=== PATIENT | female | born 1995 | race African-American/Black ===

== ENCOUNTER 2017-10-12 10:46 | Inpatient (IN) ==
--- NOTE | 2017-10-12 11:08 | ED ---
History of Present Illness Primary Care Physician: No Primary Care Physician Chief Complaint: Leakage of fluid History of Present Illness: 22-year-old at 40/2 presenting to clinic with complaints of leakage of fluid. Patient states that she had a gush of clear fluid at roughly 730 this morning. She denies any vaginal bleeding, decreased movement or contractions. She also denies any fever, chills, dysuria chest pain or shortness of breath. Patient states that this has been uncomplicated. Has been followed by Nohemi Roy for care. Of note, patient was seen for a consult on 10/04. Had planned for repeat C- section at 41 weeks if she had not delivered vaginally by that time. OB history: One prior SBA, one at 28 weeks "to prevent brain injury" [facility] - History History Provided By: Patient (history of csection due to labor at 27-28 weeks) - Medical / Surgical Hx Neg / Unobtainable Medical Problems Denied: Yes - Surgical History Surgical History: Surgical History (Last Updated 10/04/17 @ 16:05 by Jonny Mcnair MD) H/O dilation and curettage History of - Tobacco History Smoking Status: Never smoker - Alcohol History How Often Do You Have a Drink Containing Alcohol: Never (while ) - Substance Use History Substance History: No History of Abuse Medications and Allergies Allergies Allergy/AdvReac Type Severity Reaction Status Date / Time No Known Allergies Allergy Unverified 10/12/17 11:29 Home Medications Medication Instructions Recorded Confirmed Type + DHA PO DAILY 10/12/17 History Exam Narrative: GENERAL: Well-nourished, well-developed patient. SKIN: Warm and dry. HEAD: Normocephalic and atraumatic. EYES: No scleral icterus. No injection or drainage. ENT: No nasal drainage noted. Mucous membranes pink. Airway patent. NECK: Supple, trachea midline. No JVD. CARDIOVASCULAR: Regular rate and rhythm without murmurs, gallops, or rubs. RESPIRATORY: Breath sounds equal bilaterally. No accessory muscle use. ABDOMEN/GI: Abdomen soft, non-tender, bowel sounds present, no rebound, no guarding Gravid to 40 weeks size GENITOURINARY: External Genitalia: intact and normal in appearance Cervix: Posterior Dilatation: 2 Effacement: 70 Station: -2 Presentation: Vertex Membranes: Ruptured Uterine Contractions: Absent FHT's: Category: 1 Baseline: 135 Reactive: y Variability: Moderate Decels: Absent EXTREMITIES: No cyanosis or edema. BACK: Nontender without obvious deformity. No CVA tenderness. NEUROLOGICAL: Awake and alert. Motor and sensory grossly within normal limits. Five out of 5 muscle strength in all muscle groups. Normal speech. Assessment and Plan - Diagnosis (1) Rupture of membranes with clear amniotic fluid Status: Acute - Plan 22-year-old at 40/2 presenting to the OB ED with complaints of gush of clear fluid. Amnisure is positive. Will admit to labor and delivery for anticipated . -Category 1 tracing, no contractions on the monitor -GBS positive, will treat with penicillin -Pitocin for labor augmentation -Otherwise routine labor and delivery orders Discharge Plan - Discharge Disposition Patient Disposition: 30 Still Patient - Discharge Condition Condition: Stable - Physicians Team ED Provider: Yuan Eckert Primary Care Provider: Primary Care Courtney Dela Cruz - Rxs /Orders / Referrals /Forms Prescriptions: Continue + DHA tablet PO DAILY - Discharge Instructions Print Language: [place]
[2017-10-12] MEDS ORDERED: Naloxone Inj 0.4 MG/ML Vial IV.PUSH PRN ×2 (11:29→21:52)
[2017-10-12] MEDS ORDERED: Sod Chloride 0.9% Inj 1,000 ML IV.CONT PRN (11:29)
[2017-10-12] MEDS ORDERED: Oxytocin 30 Units/500ml Premix 30 UNITS/500 ML BAG IV.SIG ONE (11:29)
[2017-10-12] MEDS ORDERED: Sodium Chlor 0.9% Inj 500 ML IV.SIG PRN (11:29)
[2017-10-12] MEDS ORDERED: Penicillin G Potassium Inj 5,000,000 UNIT in Sodium Chloride 0.9% Inj 100 ML IV.SIG ONE (11:29)
[2017-10-12] MEDS ORDERED: Oxytocin 30 Units/500ml Premix 30 UNITS/500 ML BAG IV.SIG PRN (11:29)
[2017-10-12] MEDS ORDERED: fentaNYL Citrate Inj 100 MCG/2 ML Ampul IV.PUSH PRN ×2 (11:29)
[2017-10-12] MEDS ORDERED: Citric Acid/Sodium Citrate Liq 30 ML UDC PO SCH (11:30)
[2017-10-12 12:10] LABS: Bilirubin,Urine Negative (Negative); Clarity,Urine Clear (Clear); Color,Urine Straw (Yellw/Straw); Glucose,Urine (UA) Negative (Negative); Leukocyte Esterase,Urine Negative (Negative); Nitrite,Urine Negative (Negative); Specific Gravity,Urine 1.005 (1.002-1.035); Squamous Epithelial Cell,Urine 3 /hpf (0-5)
[2017-10-12 12:16] LABS: Amphetamine Urine With Conf Neg (Neg); Benzodiazepine Urine With Conf Neg (Neg)
[2017-10-12 12:49] LABS: Baso % (Auto) 0.2 % (0.0-2.0); Eos % (Auto) 0.6 % (0.0-4.0); Hematocrit 38.8 % (35.0-46.0); Hemoglobin 12.7 gm/dL (11.6-15.3); Lymph # (Auto) 1.3 th/mm3 (1.0-4.8); Lymph % (Auto) 23.4 % (9.0-44.0); Mean Corpuscular HGB Conc 32.8 % (32.0-36.0); Mean Corpuscular Hemoglobin 27.4 pg (27.0-34.0); Mean Corpuscular Volume 83.6 fL (80.0-100.0); Mean Platelet Volume 9.4 fL (7.0-11.0); Mono # (Auto) 0.3 th/mm3 (0.0-0.9); Mono % (Auto) 6.1 % (0.0-8.0); Neut # (Auto) 3.9 th/mm3 (1.8-7.7); Neut % (Auto) 69.7 % (16.0-70.0); Platelet Count 192 th/mm3 (150-450); Red Blood Count 4.64 mil/mm3 (4.00-5.30); Red Cell Distribution Width 15.6 % (11.6-17.2); White Blood Count 5.7 th/mm3 (4.0-11.0)
[2017-10-12] MEDS ORDERED: Diphtheria/Tetanus/Pertussis Vaccine Inj 0.5 ML Syringe IM ONE (16:00)
[2017-10-12] MEDS ORDERED: Measles/Mumps/Rubella Vaccine Inj 0.5 ML Vial SQ ONE (16:00)
[2017-10-12] MEDS: Penicillin G Potassium Inj 2,500,000 UNIT in Sodium Chlor 0.9% Inj 100 ML IV.SIG SCH ×2 (16:54→21:00)
[2017-10-12] MEDS ORDERED: Lidocaine PF 1% Inj 10 ML Amp ONE (19:44)
[2017-10-12] MEDS ORDERED: Bisacodyl 10 MG Supp RECTAL PRN (21:52)
[2017-10-12] MEDS ORDERED: Acetaminophen 325 MG Tablet PO PRN (21:52)
[2017-10-12] MEDS ORDERED: Zolpidem Tartrate 5 MG Tablet PO PRN (21:52)
[2017-10-12] MEDS ORDERED: Witch Hazel 50%/Glyderin 12.5% 40 Pad Jar RECTAL PRN (21:52)
[2017-10-12] MEDS ORDERED: Benzocaine 20% Top Spray 60 ML Can TOPICAL PRN (21:52)
--- NOTE | 2017-10-12 21:52 | P.OBDELI ---
Weeks Gestation: 40 Anesthesia: None, Lidocaine local to perineum Episiotomy: none Vaginal Delivery: Normal Presentation: Occiput anterior Nuchal Cord: x1 Delayed Cord Clamping (45 sec): No (avulsed cord at the umbilicus due to mothers rapid movements) Placenta: Spontaneous delivery Laceration: 2 deg Repair: Chromic running Estimated blood loss (mL): 200 Infant: Male Infant Male A Infant Delivery Date: 10/12/17 Infant Delivery Time: 21:10 Weight: 3230 kg score (1 min): 8 score (5 min): 8 Additional Information: supervised by Dr. Eckert
[2017-10-12] MEDS ORDERED: Oxytocin 30 Units/500ml Premix 30 UNITS/500 ML BAG IV.CONT SCH (22:00)
[2017-10-13] MEDS: Ibuprofen 400 MG Tablet PO PRN ×2 (02:07→21:22)
--- NOTE | 2017-10-13 08:15 | P.PNOB ---
Subjective Post day: 1 Interval history: Patient is a 22-year-old delivered at 40 weeks and 2 days. Patient is day 1 after . Patient's pain is well-controlled. Patient reports eating and drinking without any nausea or vomiting. Patient reports minimal bleeding. Patient has passed gas but no bowel movements. Patient is walking without lower extremity pain or shortness of breath. Patient reports desire for contraception and breast-feeding. Objective Vital Signs/I&O: Vital Signs 10/12/17 11:09 10/12/17 11:10 10/12/17 13:38 Temperature 98.2 F 98.2 F Pulse Rate 118 H 87 Respiratory Rate 18 Blood Pressure 120/66 116/64 10/12/17 13:44 10/12/17 14:00 10/12/17 14:32 Temperature 98.2 F Pulse Rate 89 87 Respiratory Rate 16 18 Blood Pressure 126/67 119/63 10/12/17 14:58 10/12/17 14:59 10/12/17 15:12 Temperature Pulse Rate 88 91 H Respiratory Rate 18 Blood Pressure 121/76 119/74 10/12/17 15:50 10/12/17 16:19 10/12/17 16:50 Temperature 98.3 F Pulse Rate 83 80 Respiratory Rate 18 18 Blood Pressure 123/68 134/71 10/12/17 16:51 10/12/17 17:38 10/12/17 17:39 Temperature 98.2 F Pulse Rate 81 81 Respiratory Rate 18 Blood Pressure 121/75 105/75 10/12/17 18:30 10/12/17 18:34 10/12/17 20:00 Temperature 98.2 F Pulse Rate 72 85 Respiratory Rate 18 18 Blood Pressure 115/72 111/83 10/12/17 22:00 10/12/17 22:10 10/12/17 22:30 Temperature 98.6 F 98.9 F Pulse Rate 70 68 95 H Respiratory Rate 18 18 18 Blood Pressure 128/68 124/77 128/60 10/12/17 22:45 10/12/17 23:30 Temperature 98.9 F Pulse Rate 76 70 Respiratory Rate 18 20 Blood Pressure 125/69 121/66 Intake & Output 10/12/17 10/13/17 10/13/17 18:59 06:59 18:59 Intake Total 100 / 100 Balance 100 / 100 Weight 91 kg Intake: IV 100 / 100 Pfizerpen-G Inj 2,500,000 UNIT 100 / 100 In NS Inj 100 ML @ 200 mls/hr IV.SIG Q4H [facility] Rx#:[id number] Other: Weight On Admission 91 kg Result Diagrams: 10/12/17 12:00 Objective Remarks: GENERAL: Well-nourished, well-developed patient. CARDIOVASCULAR: Regular rate and rhythm without murmurs, gallops, or rubs. RESPIRATORY: Breath sounds equal bilaterally. No accessory muscle use. ABDOMEN/GI: Abdomen soft, non-tender. Fundus: Firm, non-tender at umbilicus. GENITOURINARY: Light to moderate bleeding. EXTREMITIES: No cyanosis or edema, non-tender, without signs of DVT. Medications and IVs: Active Medications Acetaminophen (Tylenol) 650 mg PO Q4H PRN PRN Reason: PAIN SCALE 1 TO 2 Al Hydroxide/Mg Hydroxide (Milk Of Magnesia Liq) 30 ml PO Q12H PRN PRN Reason: Mild Constipation Benzocaine (Americaine 20% [place]) 1 spray TOPICAL Q4H PRN PRN Reason: For Perineum Discomfort Bisacodyl (Dulcolax Supp) 10 mg RECTAL DAILY PRN PRN Reason: SEVERE CONSITIPATION Citric Acid/Sodium Citrate (Sodium Citrate/Citric Acid Liq) 30 ml PO [employer]NAL [employer] SPECIALIST [facility] Stop: 10/16/17 11:29 Fentanyl Citrate (Fentanyl Inj) 50 mcg IV.PUSH Q1H PRN PRN Reason: Pain Scale 3 - 5 Fentanyl Citrate (Fentanyl Inj) 100 mcg IV.PUSH Q1H PRN PRN Reason: PAIN SCALE 6 TO 10 Last Admin: 10/12/17 18:29 Dose: 100 mcg Lactated Ringer's (Lr 1000 Ml Inj) 1,000 mls @ 125 mls/hr IV.CONT .Q8H [facility] Lactated Ringer's (Lr 1000 Ml Inj) 1,000 mls @ 3,000 mls/hr IV.SIG UNSCH PRN PRN Reason: compromise or epidural Sodium Chloride (Ns Inj) 500 mls @ 1,000 mls/hr IV.SIG UNSCH PRN PRN Reason: SEE LABEL COMMENTS Sodium Chloride (Ns Inj) 1,000 mls @ 100 mls/hr IV.CONT .Q10H PRN PRN Reason: SEE LABEL COMMENTS Oxytocin (Pitocin 30 Units/Ns 500 Ml Premix) 30 units in 500 mls @ 1 mls/hr IV.SIG TITRATE PRN; Protocol PRN Reason: For induction of labor Last Admin: 10/12/17 12:56 Dose: 1 milliunit/min, 1 mls/hr Penicillin G Potassium 2,500, (000 unit/ Sodium Chloride) 100 mls @ 200 mls/hr IV.SIG Q4H MATTY Last Admin: 10/12/17 21:00 Dose: 200 mls/hr Ibuprofen (Motrin) 800 mg PO Q8H PRN PRN Reason: For cramping Last Admin: 10/13/17 02:07 Dose: 800 mg Lactulose (Lactulose Liq) 30 ml PO DAILY PRN PRN Reason: SEVERE CONSITIPATION Lidocaine HCl (Xylocaine 1% Inj) 0.1 ml I-DERMAL PRN PRN PRN Reason: For IV start Stop: 10/15/17 11:28 Lidocaine HCl (Xylocaine 1% Inj) 10 ml INFILTRATN PRN PRN PRN Reason: For episiotomy repair Stop: 10/14/17 11:28 Last Admin: 10/12/17 21:30 Dose: 10 ml Mineral Oil (Muri-Lube Oil) 10 ml TOPICAL PRN PRN PRN Reason: PRN perineal massage Naloxone HCl (Narcan Inj) 0.1 mg IV.PUSH Q2M PRN PRN Reason: for opiate reversal Naloxone HCl (Narcan Inj) 0.1 mg IV.PUSH Q2M PRN PRN Reason: for opiate reversal Ondansetron HCl (Zofran Inj) 4 mg IV.PUSH Q6H PRN PRN Reason: NAUSEA OR VOMITING Ondansetron HCl (Zofran Odt) 4 mg PO Q6H PRN PRN Reason: NAUSEA OR VOMITING Oxycodone/Acetaminophen (Percocet 5/325 Mg) 1 tab PO Q4H PRN PRN Reason: PAIN SCALE 3 TO 5 Oxycodone/Acetaminophen (Percocet 5/325 Mg) 2 tab PO Q4H PRN PRN Reason: PAIN SCALE 6 TO 10 Senna/Docusate Sodium (Uzma-Colace) 1 tab PO BID MATTY Sennosides (Senokot) 17.2 mg PO Q12H PRN PRN Reason: Moderate Constipation Sodium Chloride (Ns Flush) 2 ml IV.FLUSH BID MATTY Sodium Chloride (Ns Flush) 2 ml IV.FLUSH PRN PRN PRN Reason: FLUSH AFTER USING IV ACCESS Witch Kat/Glycerin (Tucks Pads) 1 applicatio RECTAL QID PRN PRN Reason: HEMORRHOIDS Zolpidem Tartrate (Ambien) 5 mg PO HS PRN PRN Reason: SLEEP Assessment and Plan - Diagnosis (1) Vaginal delivery Code(s): O80 - Encounter for full-term uncomplicated delivery Status: Acute Plan: Patient is a 22-year-old delivered at 40 weeks and 2 days. Patient is day 1 after . Patient was counseled to do 6 weeks of pelvic rest. Patient was counseled to follow up in 6 weeks. --AF VSS --Continue routine care --Motrin and Tylenol when necessary for pain --Encourage OOB --Pelvic rest for 6 weeks will need follow-up appointment at that time. --Contraception: unsure --Anticipate discharge tomorrow
[2017-10-13] MEDS: Senna/Docusate Sodium 8.6/50 MG Tablet PO SCH ×2 (09:14→21:25)
--- NOTE | 2017-10-14 07:07 | P.PNOB ---
Subjective Post day: 2 Interval history: Patient is a 22-year-old delivered at 40 weeks and 2 days. Patient is day 2 after . Patient's pain is well-controlled. Patient reports eating and drinking without any nausea or vomiting. Patient reports minimal bleeding. Patient has passed gas but no bowel movements. Patient is walking without lower extremity pain or shortness of breath. Patient reports desire for contraception and breast-feeding. Objective Vital Signs/I&O: Vital Signs 10/13/17 08:05 10/13/17 20:05 Temperature 98.1 F 98.3 F Pulse Rate 91 H 81 Respiratory Rate 18 20 Blood Pressure 118/72 124/68 Intake & Output 10/13/17 10/14/17 10/14/17 18:59 06:59 18:59 Weight 2.825 kg Result Diagrams: 10/12/17 12:00 Objective Remarks: GENERAL: Well-nourished, well-developed patient. CARDIOVASCULAR: Regular rate and rhythm without murmurs, gallops, or rubs. RESPIRATORY: Breath sounds equal bilaterally. No accessory muscle use. ABDOMEN/GI: Abdomen soft, non-tender. Fundus: Firm, non-tender at umbilicus. GENITOURINARY: Light to moderate bleeding. EXTREMITIES: No cyanosis or edema, non-tender, without signs of DVT. Medications and IVs: Active Medications Acetaminophen (Tylenol) 650 mg PO Q4H PRN PRN Reason: PAIN SCALE 1 TO 2 Al Hydroxide/Mg Hydroxide (Milk Of Magnesia Liq) 30 ml PO Q12H PRN PRN Reason: Mild Constipation Benzocaine (Americaine 20% Top [place]) 1 spray TOPICAL Q4H PRN PRN Reason: For Perineum Discomfort Bisacodyl (Dulcolax Supp) 10 mg RECTAL DAILY PRN PRN Reason: SEVERE CONSITIPATION Citric Acid/Sodium Citrate (Sodium Citrate/Citric Acid Liq) 30 ml PO VIDEO PRODUCTION COORDINATOR [facility] Stop: 10/16/17 11:29 Fentanyl Citrate (Fentanyl Inj) 50 mcg IV.PUSH Q1H PRN PRN Reason: Pain Scale 3 - 5 Fentanyl Citrate (Fentanyl Inj) 100 mcg IV.PUSH Q1H PRN PRN Reason: PAIN SCALE 6 TO 10 Last Admin: 10/12/17 18:29 Dose: 100 mcg Lactated Ringer's (Lr 1000 Ml Inj) 1,000 mls @ 125 mls/hr IV.CONT .Q8H MATTY Lactated Ringer's (Lr 1000 Ml Inj) 1,000 mls @ 3,000 mls/hr IV.SIG UNSCH PRN PRN Reason: compromise or epidural Sodium Chloride (Ns Inj) 500 mls @ 1,000 mls/hr IV.SIG UNSCH PRN PRN Reason: SEE LABEL COMMENTS Sodium Chloride (Ns Inj) 1,000 mls @ 100 mls/hr IV.CONT .Q10H PRN PRN Reason: SEE LABEL COMMENTS Oxytocin (Pitocin 30 Units/Ns 500 Ml Premix) 30 units in 500 mls @ 1 mls/hr IV.SIG TITRATE PRN; Protocol PRN Reason: For induction of labor Last Admin: 10/12/17 12:56 Dose: 1 milliunit/min, 1 mls/hr Penicillin G Potassium 2,500, (000 unit/ Sodium Chloride) 100 mls @ 200 mls/hr IV.SIG Q4H MATTY Last Admin: 10/12/17 21:00 Dose: 200 mls/hr Ibuprofen (Motrin) 800 mg PO Q8H PRN PRN Reason: For cramping Last Admin: 10/13/17 21:22 Dose: 800 mg Lactulose (Lactulose Liq) 30 ml PO DAILY PRN PRN Reason: SEVERE CONSITIPATION Lidocaine HCl (Xylocaine 1% Inj) 0.1 ml I-DERMAL PRN PRN PRN Reason: For IV start Stop: 10/15/17 11:28 Lidocaine HCl (Xylocaine 1% Inj) 10 ml INFILTRATN PRN PRN PRN Reason: For episiotomy repair Stop: 10/14/17 11:28 Last Admin: 10/12/17 21:30 Dose: 10 ml Mineral Oil (Muri-Lube Oil) 10 ml TOPICAL PRN PRN PRN Reason: PRN perineal massage Naloxone HCl (Narcan Inj) 0.1 mg IV.PUSH Q2M PRN PRN Reason: for opiate reversal Naloxone HCl (Narcan Inj) 0.1 mg IV.PUSH Q2M PRN PRN Reason: for opiate reversal Ondansetron HCl (Zofran Inj) 4 mg IV.PUSH Q6H PRN PRN Reason: NAUSEA OR VOMITING Ondansetron HCl (Zofran Odt) 4 mg PO Q6H PRN PRN Reason: NAUSEA OR VOMITING Oxycodone/Acetaminophen (Percocet 5/325 Mg) 1 tab PO Q4H PRN PRN Reason: PAIN SCALE 3 TO 5 Oxycodone/Acetaminophen (Percocet 5/325 Mg) 2 tab PO Q4H PRN PRN Reason: PAIN SCALE 6 TO 10 Senna/Docusate Sodium (Uzma-Colace) 1 tab PO BID MATTY Last Admin: 10/13/17 21:25 Dose: 1 tab Sennosides (Senokot) 17.2 mg PO Q12H PRN PRN Reason: Moderate Constipation Sodium Chloride (Ns Flush) 2 ml IV.FLUSH BID MATTY Sodium Chloride (Ns Flush) 2 ml IV.FLUSH PRN PRN PRN Reason: FLUSH AFTER USING IV ACCESS Witch Kat/Glycerin (Tucks Pads) 1 applicatio RECTAL QID PRN PRN Reason: HEMORRHOIDS Zolpidem Tartrate (Ambien) 5 mg PO HS PRN PRN Reason: SLEEP Assessment and Plan - Diagnosis (1) Vaginal delivery Code(s): O80 - Encounter for full-term uncomplicated delivery Status: Acute Plan: Patient is a 22-year-old delivered at 40 weeks and 2 days. Patient is day 2 after . Patient was counseled to do 6 weeks of pelvic rest. Patient was counseled to follow up in 6 weeks. --AF VSS --Continue routine care --Motrin and Tylenol when necessary for pain --Encourage OOB --Pelvic rest for 6 weeks will need follow-up appointment at that time. --Contraception: outpatient --Discharge today
[2017-10-14] MEDS: Senna/Docusate Sodium 8.6/50 MG Tablet PO SCH (09:03)
== END 2017-10-14 14:16 | disposition home or self-care (01) ==
LOC: HOBED 10:46 → H2E 11:34 → H1EA 23:35
PROVIDERS: ADMIT Obstetrics & Gynecology Maternal & Fetal Medicine; ATTEND Obstetrics & Gynecology Maternal & Fetal Medicine